=== PATIENT | female | born 2000 | race Caucasian/White ===

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

== ENCOUNTER 2019-01-05 16:42 | Emergency (ER) | payer MEDICAID ==
[2019-01-05] MEDS ORDERED: HYDROmorphone 0.5 MG/0.5 ML Syringe IVPUSH ONE ×2 (17:40→19:27)
[2019-01-05] MEDS ORDERED: Sodium Chloride 0.9% 10 ML Syringe FLUSH PRN (17:40)
[2019-01-05] MEDS ORDERED: Acetaminophen 325 MG Tab PO ONE (17:41)
[2019-01-05] MEDS ORDERED: Ondansetron 4 MG/2 ML SDV IVPUSH ONE (18:30)
[2019-01-05] MEDS ORDERED: Ketorolac 30 MG/ML SDV IVPUSH SCH (19:30)
--- NOTE | 2019-01-05 20:03 | EDM.PDOC ---
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 There have been some small clots. She did a home preg. test 2 days ago that she read out as mildly positive. she does have some radiation of pain to back. States her periods are normally very regular. 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 MARKER: Reports: Other (see below) Other 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 MARKER: tylenol 10 am Lower Pelvic Pain Score (Numeric/FACES): 8 Lower Back Pain Score (Numeric/FACES): 8 - Related Data Allergies Allergy/AdvReac Type Severity Reaction Status Date / Time morphine Allergy Anaphylactic Verified 01/05/19 20:49 Shock Home Meds: Home Meds Albuterol Sulfate [Proair Respiclick] 90 mcg IH BID PRN 10/24/18 [History] Albuterol [Ventolin HFA] 1 puff INH QID PRN #1 puff 10/24/18 [Rx] Inhaler, Assist Devices [Aerochamber MV] 1 each MC ASDIRECTED #1 spacer [Rx] Past Medical History Respiratory History: Reports: Asthma 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 Musculoskeletal History: Reports: Other (See Below) Other Musculoskeletal History: r leg laceration/surgery Social & Family History - Tobacco Use Smoking Status *Q: Current Every Day Smoker Years of Tobacco use: 2 Packs/Tins Daily: 0.3 - Caffeine Use Caffeine Use: Reports: Coffee, Soda, Tea - Recreational Drug Use Recreational Drug Use: No - Living Situation & Occupation Living situation: Reports: Single Occupation: Employed ED ROS GENERAL - Review of Systems Review Of Systems: See Below Respiratory: Denies: Shortness of Breath, Pleuritic Chest Pain Cardiovascular: Denies: Chest Pain GI/Abdominal: Reports: Abdominal Pain (lower pelvic). Denies: Nausea, Vomiting Musculoskeletal: Reports: Back Pain. Denies: Shoulder Pain Skin: Reports: No Symptoms Neurological: Denies: Dizziness ED EXAM, RENAL/ - Physical Exam Exam: See Below General Appearance: Alert, Anxious, Moderate Distress Throat/Mouth: Normal Inspection Neck: Supple Respiratory/Chest: No Respiratory Distress, Lungs Clear, Normal Breath Sounds Cardiovascular: Regular Rate, Rhythm GI/Abdominal: Tender (lower mid abd and pelvis) (Female) Exam: Normal External Exam, Vaginal Bleeding (small amt of dark blood post vag. vault), Other (mild tenderness uterus and bilat adnexa, no mass palpable). No: Enlarged Uterus Extremities: Normal Inspection, Normal Range of Motion Neurological: Alert, Oriented Course - Vital Signs Last Recorded V/S: Last Vital Signs Temp 98.1 F 01/05/19 17:02 Pulse 89 01/05/19 17:02 Resp 20 01/05/19 17:02 BP 113/82 01/05/19 17:02 Pulse Ox 100 01/05/19 17:02 - Orders/Labs/Meds Orders: Active Orders 24 hr Category Date Time Status Pelvic Exam, Set Up [RC] ASDIRECTED Care 01/05/19 19:30 Active Peripheral IV Care [RC] . DIRECTED Care 01/05/19 17:41 Active Peripheral IV Insertion Adult [OM.PC] Stat Oth 01/05/19 17:40 Ordered Labs: Laboratory Tests 01/05/19 01/05/19 01/05/19 Range/Units 17:50 17:50 17:50 WBC 7.91 (3.98-10.04) K/mm3 RBC 5.02 (3.98-5.22) M/mm3 Hgb 13.6 (11.2-15.7) gm/dl Hct 41.4 (34.1-44.9) % MCV 82.5 (79.4-94.8) fl MCH 27.1 (25.6-32.2) pg MCHC 32.9 (32.2-35.5) g/dl RDW Std Deviation 44.9 (36.4-46.3) fL Plt Count 242 (182-369) K/mm3 MPV 11.6 (9.4-12.3) fl Neut % (Auto) 54.7 (34.0-71.1) % Lymph % (Auto) 27.9 (19.3-51.7) % [place] % (Auto) 12.1 (4.7-12.5) % Eos % (Auto) 4.4 (0.7-5.8) Baso % (Auto) 0.8 (0.1-1.2) % Neut # (Auto) 4.32 (1.56-6.13) K/mm3 Lymph # (Auto) 2.21 (1.18-3.74) K/mm3 [place] # (Auto) 0.96 H (0.24-0.36) K/mm3 Eos # (Auto) 0.35 (0.04-0.36) K/mm3 Baso # (Auto) 0.06 (0.01-0.08) K/mm3 HCG, Qual Negative (NEGATIVE) HCG, Quant 1.0 mIU/mL Meds: Medications Discontinued Medications Generic Name Dose Route Start Last Admin Trade Name Freq PRN Reason Stop Dose Admin Acetaminophen 975 mg 01/05/19 17:41 Tylenol PO 01/05/19 17:42 NOW ONE Hydromorphone HCl 0.25 mg 01/05/19 17:40 01/05/19 18:00 Dilaudid IVPUSH 01/05/19 17:41 0.25 mg ONETIME ONE Administration Hydromorphone HCl 0.5 mg 01/05/19 19:27 01/05/19 19:40 Dilaudid IVPUSH 01/05/19 19:28 0.5 mg ONETIME ONE Administration Ketorolac Tromethamine 30 mg 01/05/19 19:30 01/05/19 19:38 Toradol IVPUSH 30 mg ONETIME NATALY Administration Ondansetron HCl 4 mg 01/05/19 18:30 01/05/19 18:42 Zofran IVPUSH 01/05/19 18:31 4 mg ONETIME ONE Administration Sodium Chloride 10 ml 01/05/19 17:40 01/05/19 18:02 Saline Flush FLUSH 10 ml ASDIRECTED PRN Administration Keep Vein Open - Re-Assessments/Exams Free Text/Narrative Re-Assessment/Exam: 01/06/19 15:49 HCG and quant neg. Departure - Departure Time of Disposition: 20:02 Disposition: Home, Self-Care 01 Condition: Fair Clinical Impression: Dysmenorrhea, unspecified - Discharge Information Instructions: Dysmenorrhea, [id number] Referrals: PCP,None [Primary Care Provider] - Forms: ED Department Discharge Additional Instructions: Rest, ibuprofen or Aleve up to 3 times daily with Tylenol in between doses as needed for further pain relief, drink plenty of water to maintain hydration. Follow-up clinic if not much better within 2-3 days as expected, return to ED as needed if symptoms worsening in any way. - My Orders Last 24 Hours: My Active Orders 01/05/19 17:40 Peripheral IV Insertion Adult [OM.PC] Stat 01/05/19 17:41 Peripheral IV Care [RC] . DIRECTED 01/05/19 19:30 Pelvic Exam, Set Up [RC] ASDIRECTED - Assessment/Plan Last 24 Hours: My Active Orders 01/05/19 17:40 Peripheral IV Insertion Adult [OM.PC] Stat 01/05/19 17:41 Peripheral IV Care [RC] . DIRECTED 01/05/19 19:30 Pelvic Exam, Set Up [RC] ASDIRECTED
== END 2019-01-05 20:33 | disposition home or self-care (01) ==
LOC: JD.ED 16:42
DX: N94.6 Dysmenorrhea, unspecified (principal); J45.909 Unspecified asthma, uncomplicated; F17.210 Nicotine dependence, cigarettes, uncomplicated; Z88.5 Allergy status to narcotic agent; Z79.51 Long term (current) use of inhaled steroids
CPT/HCPCS: 36415; 84702; 84703; 85025; 96374; 96375; 96376; 99284; J1170; J1885; J2405

== ENCOUNTER 2019-05-18 11:37 | Emergency (ER) | payer MEDICAID ==
[2019-05-18] MEDS ORDERED: Ondansetron 4 MG Tab.DIS PO ONE (12:16)
[2019-05-18] MEDS ORDERED: Acetaminophen 325 MG Tab PO ONE (12:31)
[2019-05-18] MEDS ORDERED: Dicyclomine 10 MG Cap PO ONE (12:32)
--- NOTE | 2019-05-18 12:39 | EDM.PDOC ---
ED HPI GENERAL MEDICAL PROBLEM - General Chief Complaint: General Stated Complaint: HEADACHE/NAUSEA/ Time Seen by Provider: 05/18/19 12:15 Source of Information: Reports: Patient History Limitations: Reports: No Limitations - History of Present Illness INITIAL COMMENTS - FREE TEXT/NARRATIVE: Patient is a 18-year-old female who presents with complaints of fever, headache , body aches, cough, sore throat, nausea, vomiting x2, abdominal cramping and watery diarrhea for the last 2 days. She states that she has been using Tylenol and ibuprofen for pain, and yesterday she took a [place] to help with a stomach cramping. She states that her younger sister was ill with headache and malaise, but did not develop GI symptoms. T-max at home was 100.8. Current temp is 98.8 she has not taken any Tylenol or ibuprofen yet today. Patient states that there is a possibility that she could be however she has not taken a test. She states that she has been able to keep down fluids and food that she has only vomited twice over the course of this illness. She states that she has had diarrhea "a couple times a day "but that has not been excessive. Generalized Pain Score (Numeric/FACES): 7 - Related Data Allergies Allergy/AdvReac Type Severity Reaction Status Date / Time morphine Allergy Anaphylactic Verified 05/18/19 11:50 Shock Home Meds: Home Meds Albuterol [Ventolin HFA] 1 puff INH QID PRN #1 puff 10/24/18 [Rx] Dicyclomine [Bentyl] 20 mg PO Q6H PRN #10 tablet 05/18/19 [Rx] Fluticasone/Salmeterol [Advair 250-50 Diskus] 1 each IH DAILY PRN 05/18/19 [ History] Ondansetron [Zofran ODT] 4 mg PO Q6H PRN #10 tab.dis 05/18/19 [Rx] Past Medical History HEENT History: Reports: None Cardiovascular History: Reports: None Respiratory History: Reports: Asthma Gastrointestinal History: Reports: None Genitourinary History: Reports: None 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 Musculoskeletal History: Reports: Other (See Below) Other Musculoskeletal History: r leg laceration/surgery Neurological History: Reports: None Psychiatric History: Reports: None Endocrine/Metabolic History: Reports: None Hematologic History: Reports: None Immunologic History: Reports: None Oncologic (Cancer) History: Reports: None Dermatologic History: Reports: None - Infectious Disease History Infectious Disease History: Reports: None Social & Family History - Tobacco Use Smoking Status *Q: Never Smoker - Caffeine Use Caffeine Use: Reports: Coffee, Soda - Recreational Drug Use Recreational Drug Use: No - Living Situation & Occupation Living situation: Reports: Single Occupation: Employed ED ROS GENERAL - Review of Systems Review Of Systems: Comprehensive ROS is negative, except as noted in HPI. ED EXAM, GENERAL - Physical Exam Exam: See Below Exam Limited By: No Limitations General Appearance: Alert, WD/WN, Mild Distress Eye Exam: Bilateral Eye: PERRL Ears: Normal External Exam, Normal Canal, Hearing Grossly Normal, Normal TMs Ear Exam: Bilateral Ear: Auricle Normal, Canal Normal, TM normal Throat/Mouth: Normal Inspection, Normal Lips, Normal Teeth, Normal Gums, Normal Oropharynx, Normal Voice, No Airway Compromise Head: Atraumatic, Normocephalic Respiratory/Chest: No Respiratory Distress, Lungs Clear, Normal Breath Sounds, No Accessory Muscle Use, Chest Non-Tender Cardiovascular: Normal Peripheral Pulses, Regular Rate, Rhythm, No Edema, No Gallop, No JVD, No Murmur, No Rub GI/Abdominal: Normal Bowel Sounds, Soft, Non-Tender, No Organomegaly, No Distention, No Abnormal Bruit, No Mass Neurological: Alert, Oriented, CN II-XII Intact, Normal Cognition, Normal Gait, Normal Reflexes, No Motor/Sensory Deficits Psychiatric: Normal Affect Skin Exam: Warm, Dry, Intact, Normal Color, No Rash Lymphatic: No Adenopathy Course - Vital Signs Last Recorded V/S: Last Vital Signs Temp 98.8 F 05/18/19 11:46 Pulse 95 05/18/19 11:46 Resp 16 05/18/19 11:46 BP 125/88 05/18/19 11:46 Pulse Ox 95 05/18/19 11:46 - Orders/Labs/Meds Meds: Medications Discontinued Medications Generic Name Dose Route Start Last Admin Trade Name Freq PRN Reason Stop Dose Admin Acetaminophen 975 mg 05/18/19 12:31 05/18/19 12:44 Tylenol PO 05/18/19 12:32 975 mg NOW ONE Administration Dicyclomine HCl 20 mg 05/18/19 12:32 05/18/19 12:44 Bentyl PO 05/18/19 12:33 20 mg ONETIME ONE Administration Ondansetron HCl 4 mg 05/18/19 12:16 05/18/19 12:20 Zofran Odt PO 05/18/19 12:17 4 mg ONETIME ONE Administration - Re-Assessments/Exams Free Text/Narrative Re-Assessment/Exam: 05/18/19 12:59 His influenza swab was negative. Discussed with her that she is likely suffering from a viral illness, possibly 2 separate viral illnesses which would account for the respiratory and the GI symptoms. She does not have any abdominal pain. There is no tenderness to palpation. She only complains of intermittent abdominal cramping. I will discharge her home with a prescription for Zofran for nausea and Bentyl for abdominal cramping. Discharge instructions as noted. 05/18/19 14:00 Patient verbalized concern on discharge regarding the medication safety during . I did go visit with the patient. I instruct ed her to complete a urine test when she gets home. If it is positive she should try alternative methods to relieve the nausea such as jagdish or meclazine; however, she may use the Zofran for severe nausea not relieved by other methods. I advised that she should use it sparingly. I also discussed that Bentyl is safe up to 40 mg daily so she may take it every 12 hours if she is . She questioned if the could be making her vomit. I did discuss that this is a possibility, however would not generally cause abdominal cramping as well as diarrhea. She had no further questions for me. Departure - Departure Time of Disposition: 13:00 Disposition: Home, Self-Care 01 Condition: Fair Clinical Impression: Viral illness - Discharge Information *PRESCRIPTION DRUG MONITORING PROGRAM REVIEWED*: No *COPY OF PRESCRIPTION DRUG MONITORING REPORT IN PATIENT CAMILA: No Prescriptions: Dicyclomine [Bentyl] 20 mg PO Q6H PRN #10 tablet PRN Reason: abdominal cramping Ondansetron [Zofran ODT] 4 mg PO Q6H PRN #10 tab.dis PRN Reason: Nausea Instructions: Viral Illness, Adult Referrals: PCP,None [Primary Care Provider] - Forms: ED Department Discharge Additional Instructions: The emergency department today for cough, fever, body aches, nausea, vomiting, and diarrhea for the last 2 days. An influenza screen was done in the ER and this did come back negative. It is likely that you are suffering from a viral illness and you should begin to gradually improve from here. A prescription has been sent to [facility] for Zofran for nausea and Bentyl for abdominal cramping. Uses medications as prescribed. You may continue to use [id number] Tylenol as needed for fever or discomfort. Since there is a chance that you could be I recommend not using ibuprofen. I also recommend that you keep a clear liquid diet for the next 24 hours and then advance as tolerated. If you should experience any new or worsening symptoms or failure to improve as expected, please do not hesitate to return to the emergency department. Sepsis Event Note - Evaluation Sepsis Screening Result: No Definite Risk - Focused Exam Vital Signs: Vital Signs Temp Pulse Resp BP Pulse Ox 05/18/19 11:46 98.8 F 95 16 125/88 95 Date Exam was Performed: 05/18/19 Time Exam was Performed: 15:40
== END 2019-05-18 13:54 | disposition home or self-care (01) ==
LOC: JD.ED 11:37
DX: B34.9 Viral infection, unspecified (principal); J45.909 Unspecified asthma, uncomplicated; Z79.51 Long term (current) use of inhaled steroids; Z88.6 Allergy status to analgesic agent
CPT/HCPCS: 87804; 99284; A9270

== ENCOUNTER 2019-06-01 22:39 | Emergency (ER) | payer MEDICAID ==
[2019-06-01] MEDS ORDERED: Acetaminophen/oxyCODONE 325-5 MG Tab PO ONE (23:12)
[2019-06-01] MEDS ORDERED: Ibuprofen 600 MG Tab PO ONE (23:12)
[2019-06-01] MEDS ORDERED: Ondansetron 4 MG Tab.DIS PO ONE (23:17)
--- NOTE | 2019-06-01 23:17 | EDM.PDOC ---
ED HPI GENERAL MEDICAL PROBLEM - General Chief Complaint: Lower Extremity Injury/Pain Stated Complaint: ROLLED ANKLE Time Seen by Provider: 06/01/19 23:00 Source of Information: Reports: Patient, Family ( multiple female friends. ) History Limitations: Reports: No Limitations - History of Present Illness INITIAL COMMENTS - FREE TEXT/NARRATIVE: 18-year-old female presents to the ED with an acute injury to her left lower extremity while walking down stairs earlier today. Injury occurred about 1500 hrs. today. He believes that she inverted her right ankle Onset: Today Onset Date: 06/01/19 Onset Time: 15:00 Duration: Hour(s): Location: Reports: Lower Extremity, Left (Complains of pain proximal fibula mid shaft tib-fib ankle particularly lateral distal fibula and pain on compression of the metatarsals lateral foot) Quality: Reports: Ache, Throbbing Severity: Moderate Improves with: Reports: Rest Worsens with: Reports: Other Context: Reports: Trauma (Slipped walking down stairs with an inversion injury to her right ankle causing her to fall.). Denies: Activity, Exercise (Unable to weight-bear left leg. 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 (see below) Left Ankle Pain Score (Numeric/FACES): 8 - Related Data Allergies Allergy/AdvReac Type Severity Reaction Status Date / Time morphine Allergy Anaphylactic Verified 06/01/19 22:46 Shock Home Meds: Home Meds Albuterol [Ventolin HFA] 1 puff INH QID PRN #1 puff 10/24/18 [Rx] Fluticasone/Salmeterol [Advair 250-50 Diskus] 1 each IH DAILY PRN 05/18/19 [ History] Past Medical History HEENT History: Reports: None Cardiovascular History: Reports: None Respiratory History: Reports: Asthma Gastrointestinal History: Reports: None Genitourinary History: Reports: None 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 Musculoskeletal History: Reports: Other (See Below) Other Musculoskeletal History: r leg laceration/surgery Neurological History: Reports: None Psychiatric History: Reports: Anxiety, Bipolar Endocrine/Metabolic History: Reports: None Hematologic History: Reports: None Immunologic History: Reports: None Oncologic (Cancer) History: Reports: None Dermatologic History: Reports: None - Infectious Disease History Infectious Disease History: Reports: None Social & Family History - Tobacco Use Smoking Status *Q: Never Smoker - Caffeine Use Caffeine Use: Reports: Coffee, Energy Drinks, Soda, Tea - Recreational Drug Use Recreational Drug Use: Yes Drug Use in Last 12 Months: Yes Recreational Drug Type: Reports: Marijuana/Hashish - Living Situation & Occupation Living situation: Reports: Single Occupation: Employed Review of Systems - Review of Systems Review Of Systems: See Below Constitutional: Reports: No Symptoms Eyes: Reports: No Symptoms Ears: Reports: No Symptoms Nose: Reports: No Symptoms Mouth/Throat: Reports: No Symptoms Respiratory: Reports: No Symptoms Cardiovascular: Reports: No Symptoms GI/Abdominal: Reports: No Symptoms Genitourinary: Reports: No Symptoms, Other (She states she just finished her period 3 days ago and was on Timentin as expected) Musculoskeletal: Reports: No Symptoms Skin: Reports: No Symptoms Neurological: Reports: No Symptoms Psychiatric: Reports: No Symptoms ED EXAM, GENERAL - Physical Exam Exam: See Below Exam Limited By: No Limitations General Appearance: Alert, WD/WN, Anxious, Moderate Distress, Other Head: Atraumatic, Normocephalic, Other Neck: Normal Inspection, Supple, Non-Tender, Full Range of Motion. No: Lymphadenopathy (L), Lymphadenopathy (R) Respiratory/Chest: No Respiratory Distress (Has a healing superficial laceration right facial cheek she states she was struck by a door a few days ago.), Lungs Clear, Normal Breath Sounds, No Accessory Muscle Use, Other (No rib pain.) Cardiovascular: Normal Peripheral Pulses, Regular Rate, Rhythm, No Edema, No Murmur, No Rub Peripheral Pulses: 3+: Posterior Tibial (L), Posterior Tibial (R), Dorsalis Pedis (L), Dorsalis Pedis (R) Extremities: Other ((Injury to the upper extremities or the right lower extremity. Examination was contained to the left lower extremity. She complains of the pain around her knee but mostly proximal fibula area. There is no traumatic effusion in the knee itself and patellofemoral articulation is normal. There is pain in the midshaft of the tib-fib on squeeze test mid shaft as well as in her left lateral ankle. There is some slight swelling of the lateral ankle ligaments but no obvious deformities to suggest a fracture. She has pain on squeeze test mid foot of the metatarsals and over the fifth metatarsal head again with no obvious deformity or ecchymoses.) Neurological: Alert, Oriented, CN II-XII Intact, Normal Cognition. No: Normal Gait (He is not able to weight-bear on the left foot.) Psychiatric: Anxious Skin Exam: Warm, Dry, Intact, Normal Color, No Rash Course - Vital Signs Last Recorded V/S: Last Vital Signs Temp 36.4 C 06/01/19 22:54 Pulse 86 06/01/19 22:54 Resp 18 06/01/19 22:54 BP 101/62 06/01/19 22:54 Pulse Ox 98 06/01/19 22:54 - Orders/Labs/Meds Orders: Active Orders 24 hr Category Date Time Status Ankle Min 3V Lt [CR] Stat Exams 06/01/19 23:15 Taken Foot Comp Min 3V Lt [CR] Stat Exams 06/01/19 23:16 Taken Tibia Fibula Lt [CR] Stat Exams 06/01/19 23:14 Taken Durable Medical Equipment for Discharge [DME for Oth 06/02/19 00:03 Ordered Discharge] [COMM] Stat Meds: Medications Discontinued Medications Generic Name Dose Route Start Last Admin Trade Name Freq PRN Reason Stop Dose Admin Ibuprofen 600 mg 06/01/19 23:12 06/01/19 23:18 Motrin PO 06/01/19 23:13 600 mg ONETIME ONE Administration Ondansetron HCl 4 mg 06/01/19 23:17 06/01/19 23:20 Zofran Odt PO 06/01/19 23:18 4 mg ONETIME ONE Administration Oxycodone/Acetaminophen 2 tab 06/01/19 23:12 06/01/19 23:18 Percocet 325-5 Mg PO 06/01/19 23:13 2 tab ONETIME ONE Administration - Radiology Interpretation Free Text/Narrative:: 18-year-old female presents to the ED for evaluation of left lower extremity injury that occurred about 1500 hrs. today. She is walking down some stairs and inverted her left ankle which caused her to fall with direct blow to the knee. Is complaining of pain that is gradually worsened in the left knee left proximal fibula mid shaft tib-fib left lateral ankle and left lateral foot. He has deformities and no traumatic effusion of the knee. I do not suspect a fracture clinically. As of the tib-fib ankle and foot will be obtained. When 2 Percocet tabs 5/3/25 milligram by mouth with Zofran 4 mg sublingually. Motrin 600 mg by mouth as well for pain relief. - Re-Assessments/Exams Free Text/Narrative Re-Assessment/Exam: 06/02/19 00:06 x-rays of the left tib-fib ankle and foot are negative for any fractures. Patient will have her left ankle wrapped with an Man wrap and she will be nonweightbearing crutch walking for the next 4-5 days. No will be provided to keep her out of the work place for the next 7 days due to sprained left ankle. 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 She 'll continue Motrin 6 mg every 6 hours needed for pain relief. Levator and ice the sore areas for the next 48 hours. Departure - Departure Time of Disposition: 00:06 Disposition: Home, Self-Care 01 Condition: Fair Clinical Impression: Contusion of left lower extremity Qualifiers: Encounter type: initial encounter Qualified Code(s): S80.12XA - Contusion of left lower leg, initial encounter Sprain of left ankle Qualifiers: Encounter type: initial encounter Involved ligament of ankle: calcaneofibular ligament Qualified Code(s): S93.412A - Sprain of calcaneofibular ligament of left ankle, initial encounter - Discharge Information *PRESCRIPTION DRUG MONITORING PROGRAM REVIEWED*: Not Applicable *COPY OF PRESCRIPTION DRUG MONITORING REPORT IN PATIENT CAMILA: Not Applicable Instructions: Ankle Sprain, [id number], Foot Contusion, [id number], Contusion Referrals: PCP,None [Primary Care Provider] - Forms: ED Department Discharge, ED Return to Work/School Form Additional Instructions: Evaluation emergency room tonight in regards to injuries to the left lower extremity that occurred from falling down 4 stairs at about 1500 hrs. yesterday. Pain left lateral knee mid shaft of the leg and left lateral ankle and foot identified on examination. No obvious deformities or significant swelling identified. Of the tib-fib the knee ankle and foot were obtained and no fractures were identified. Injuries are therefore bone contusions and sprain of the left lateral ankle ligaments. Treatment is Man wrap on the left ankle for the next 8-10 days. Suggest on during the day and off at night although you may leave it on all night tonight. Ice pack to sore areas one half hour out of every 4 hours for the next 2 days. Motrin 600 mg every 6 hours needed for pain relief. Suggest nonweightbearing crutch walking for the next 4-5 days until he can walk comfortably with very minimal discomfort in your left ankle. Suggest a well laced up boot for the next 3-4 weeks as it is still very icy outside making her more prone to reinjuring the ankle. Off work for the next week due to the nature of your job. Follow up with personal care physician if not completely back to normal in 14 days time. Sepsis Event Note - Evaluation Sepsis Screening Result: No Definite Risk - Focused Exam Vital Signs: Vital Signs Temp Pulse Resp BP Pulse Ox 06/01/19 22:54 36.4 C 86 18 101/62 98 06/01/19 22:48 18 Date Exam was Performed: 06/02/19 Time Exam was Performed: 00:06 - My Orders Last 24 Hours: My Active Orders 06/01/19 23:14 Tibia Fibula Lt [CR] Stat 06/01/19 23:15 Ankle Min 3V Lt [CR] Stat 06/01/19 23:16 Foot Comp Min 3V Lt [CR] Stat 06/02/19 00:03 Durable Medical Equipment for Discharge [DME for Discharge] [COMM] Stat - Assessment/Plan Last 24 Hours: My Active Orders 06/01/19 23:14 Tibia Fibula Lt [CR] Stat 06/01/19 23:15 Ankle Min 3V Lt [CR] Stat 06/01/19 23:16 Foot Comp Min 3V Lt [CR] Stat 06/02/19 00:03 Durable Medical Equipment for Discharge [DME for Discharge] [COMM] Stat
--- NOTE | 2019-06-02 08:00 | CR ---
Left tibia and fibula: AP and lateral views of the left tibia and fibula were obtained. No fracture or other bony abnormality is appreciated. Impression: 1. No abnormality is appreciated on two-view left tibia and fibula exam. Diagnostic code #1 This report was dictated in [place] Standard Time
--- NOTE | 2019-06-02 08:00 | CR ---
Left foot: Three views centered to the left foot were obtained. Comparison: No prior left foot exam. Joint spaces are preserved. No fracture, dislocation or other bony abnormality is appreciated. Impression: 1. No abnormality is identified on left foot exam. Diagnostic code #1 This report was dictated in [place] Standard Time
--- NOTE | 2019-06-02 08:00 | CR ---
Left ankle: Four views of the left ankle were obtained. Comparison: No previous ankle study. Ankle mortise is symmetric. No fracture, dislocation or other bony abnormality is appreciated. Impression: 1. No abnormality is identified on left ankle exam. Diagnostic code #1 This report was dictated in [place] Standard Time
== END 2019-06-02 00:18 | disposition home or self-care (01) ==
LOC: JD.ED 22:39
DX: S93.412A Sprain of calcaneofibular ligament of left ankle, initial encounter (principal); S80.02XA Contusion of left knee, initial encounter; S80.12XA Contusion of left lower leg, initial encounter; J45.909 Unspecified asthma, uncomplicated; Z79.899 Other long term (current) drug therapy; Z88.5 Allergy status to narcotic agent; W10.9XXA Fall (on) (from) unspecified stairs and steps, initial encounter; X50.1XXA Overexertion from prolonged static or awkward postures, initial encounter
CPT/HCPCS: 73590; 73610; 73630; 99283; A9270

== ENCOUNTER 2019-06-13 20:59 | Emergency (ER) | payer OTHER ==
[2019-06-13] MEDS ORDERED: Ondansetron 4 MG Tab.DIS PO ONE (22:45)
[2019-06-13] MEDS ORDERED: Ibuprofen 600 MG Tab PO ONE (22:45)
[2019-06-13] MEDS ORDERED: Acetaminophen/oxyCODONE 325-5 MG Tab PO ONE (22:46)
--- NOTE | 2019-06-13 22:49 | EDM.PDOC ---
ED HPI GENERAL MEDICAL PROBLEM - General Chief Complaint: Lower Extremity Injury/Pain Stated Complaint: ANKLE INJURY Time Seen by Provider: 06/13/19 22:38 Source of Information: Reports: Patient, Family History Limitations: Reports: No Limitations - History of Present Illness INITIAL COMMENTS - FREE TEXT/NARRATIVE: 18-year-old female presents to the ED with a recurrent inversion injury to her left ankle. States she slipped on water in the workplace about 2030 hrs. tonight but was able to catch herself before she fell to the ground. She has a recent inversion sprain to this ankle and is just recovering from injury 2 weeks ago. She still has ecchymoses along the lateral aspect of her left foot. To be very histrionic with pain from the knee to her great toe. Ice I touched caused severe pain. No obvious deformities and very minimal swelling to the lateral ankle only on exam. Nurses report that she walked into the ED on her leg. Onset: Today Onset Date: 06/13/19 Onset Time: 20:30 Duration: Hour(s): Location: Reports: Lower Extremity, Left (Ankle pain rating up to the knee and to her great toe) Quality: Reports: Ache, Throbbing Severity: Severe (9 out of 10) Improves with: Reports: Rest Worsens with: Reports: Movement (Of note she walked into the ED on her foot.) Context: Reports: Trauma (Inversion injury when she slipped on water in the workplace.). 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.) Left Ankle Pain Score (Numeric/FACES): 8 - Related Data Allergies Allergy/AdvReac Type Severity Reaction Status Date / Time morphine Allergy Anaphylactic Verified 06/13/19 21:34 Shock Home Meds: Home Meds Albuterol [Ventolin HFA] 1 puff INH QID PRN #1 puff 10/24/18 [Rx] Fluticasone/Salmeterol [Advair 250-50 Diskus] 1 each IH DAILY PRN 05/18/19 [ History] Past Medical History HEENT History: Reports: None Cardiovascular History: Reports: None Respiratory History: Reports: Asthma (On 2 inhalers.) Gastrointestinal History: Reports: None Genitourinary History: Reports: None 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 Musculoskeletal History: Reports: Other (See Below) Other Musculoskeletal History: r leg laceration/surgery Neurological History: Reports: None Psychiatric History: Reports: Anxiety, Bipolar Endocrine/Metabolic History: Reports: None Hematologic History: Reports: None Immunologic History: Reports: None Oncologic (Cancer) History: Reports: None Dermatologic History: Reports: None - Infectious Disease History Infectious Disease History: Reports: MRSA Social & Family History - Tobacco Use Smoking Status *Q: Never Smoker - Caffeine Use Caffeine Use: Reports: Coffee, Soda, Tea - Recreational Drug Use Recreational Drug Use: Yes Recreational Drug Type: Reports: Marijuana/Hashish - Living Situation & Occupation Living situation: Reports: Single Occupation: Employed Review of Systems - Review of Systems Review Of Systems: See Below Constitutional: Reports: No Symptoms Eyes: Reports: No Symptoms Ears: Reports: No Symptoms Nose: Reports: No Symptoms Mouth/Throat: Reports: No Symptoms Respiratory: Reports: No Symptoms Cardiovascular: Reports: No Symptoms GI/Abdominal: Reports: No Symptoms Genitourinary: Reports: No Symptoms, Vaginal Bleeding Skin: Reports: No Symptoms Neurological: Reports: No Symptoms Psychiatric: Reports: Other (Very histrionic behavior) ED EXAM, GENERAL - Physical Exam Exam: See Below Exam Limited By: No Limitations General Appearance: Alert, WD/WN, Severe Distress, Other (Very dramatic presentation and histrionic.) Eye Exam: Bilateral Eye: Normal Inspection (Does not appear to be under the influence of drugs or alcohol.) Peripheral Pulses: 3+: Posterior Tibial (L), Posterior Tibial (R), Dorsalis Pedis (L), Dorsalis Pedis (R) Extremities: Other (Minasian was limited to her left lower extremity although examination was for the most part futile. She had pain on compression of her proximal fibula pain on midshaft of the tib-fib pain on compression of her tarsals. Pain on palpation of the deltoid ligament and I did not palpate the lateral ligaments as it was very minimal swelling. She was reluctant to dorsiflex or plantarflex her foot or mando or invert the foot due to pain. Again very dramatic presentation) Neurological: Alert, Oriented, CN II-XII Intact, Normal Cognition Psychiatric: Anxious Skin Exam: Warm, Dry, Intact, Normal Color, No Rash Course - Vital Signs Last Recorded V/S: Last Vital Signs Temp 36.5 C 06/13/19 21:32 Pulse 74 06/13/19 21:32 Resp 16 06/13/19 21:32 BP 141/105 H 06/13/19 21:32 Pulse Ox 100 06/13/19 21:32 - Orders/Labs/Meds Orders: Active Orders 24 hr Category Date Time Status Ankle Min 3V Lt [CR] Stat Exams 06/13/19 22:08 Taken Meds: Medications Discontinued Medications Generic Name Dose Route Start Last Admin Trade Name Baljit PRN Reason Stop Dose Admin Ibuprofen 600 mg 06/13/19 22:45 06/13/19 23:23 Motrin PO 06/13/19 22:46 Not Given ONETIME ONE Ondansetron HCl 4 mg 06/13/19 22:45 06/13/19 23:23 Zofran Odt PO 06/13/19 22:46 Not Given ONETIME ONE Oxycodone/Acetaminophen 1 tab 06/13/19 22:46 06/13/19 23:23 Percocet 325-5 Mg PO 06/13/19 22:47 Not Given ONETIME ONE - Radiology Interpretation Free Text/Narrative:: 18-year-old female presents to the ED stating that she suffered an inversion injury to her left ankle when sleep slipped in some water in the workplace about 2030 hrs. tonight. She caught herself before she fell to the floor. She has a previous inversion injury to the ankle about 2 weeks ago and still has ecchymoses along the lateral aspect of her left foot and ankle. She was extremely reluctant to have any examination of her entire leg is anyplace that I touched because severe pain particular the proximal fibula midshaft of the tib -fib the ankle bones medial ligament and the meta tarsal bones. Therefore examination was less than satisfactory. I have ordered Motrin 600 mg and Zofran 4 mg and Percocet 5/325 mg tablet for her terrible pain. Will be to have x-rays of the tib-fib and ankle performed. - Re-Assessments/Exams Free Text/Narrative Re-Assessment/Exam: 06/13/19 23;15:'s nurse had ordered 3 view x-ray of her left ankle which I did look at and identified no fractures. I could see most of the posterior and midfoot with no fractures particular no evidence of a Dan fracture. Was waiting for her to have the completion of her tib-fib x-rays but apparently she refused the x-rays and she refused the medication offered to help her pain. Therefore discharged from the ED. Apparently she has crutches at home from her last injury. I am not sure if she accepted the Man wrap that I's had suggested to the left foot and ankle for support and to allow ice pack to the lateral aspect of the foot. Treatment is R.I.C.E. Departure - Departure Time of Disposition: 23:46 Disposition: Home, Self-Care 01 Condition: Fair Clinical Impression: Sprain and strain of left ankle - Discharge Information *PRESCRIPTION DRUG MONITORING PROGRAM REVIEWED*: Not Applicable *COPY OF PRESCRIPTION DRUG MONITORING REPORT IN PATIENT CAMILA: Not Applicable Instructions: Ankle Sprain, [id number] Referrals: Ruma Frye MD [Primary Care Provider] - Forms: ED Department Discharge Additional Instructions: Valuation in the emergency room tonight in regards to acute inversion injury to your left ankle. Recurrent injury to this ankle over the last several weeks. Examination was limited due to not allowing me to properly examine the left leg. You had pain from your knee to your great toe on examination. Strays of the ankle and most of the foot and the lower half of your tibia and fibula or lower leg were obtained prior to my evaluation. No fractures were identified in the ankle joint foot joint or the distal tib-fib. You refused x-rays of the upper tib-fib when they were offered to you. You also refused pain management while in the ED. Suggest Man wrap on the ankle usually on during the day and off at night. Man wrap for 10 days. Suggest nonweightbearing and use of crutches until able to weight-bear without pain which will usually be about 4 to 5 days. Elevate the foot as much as possible. Ice pack to the area 1/2- hour out of every 4 hours for the next 2 days. [place] 600 mg every 6 hours to reduce pain and inflammation. Up with personal care physician if not completely back to normal in 2 weeks time Sepsis Event Note - Evaluation Sepsis Screening Result: No Definite Risk - Focused Exam Vital Signs: Vital Signs Temp Pulse Resp BP Pulse Ox 06/13/19 21:32 36.5 C 74 16 141/105 H 100 Date Exam was Performed: 06/14/19 Time Exam was Performed: 02:48 - My Orders Last 24 Hours: My Active Orders 06/13/19 22:08 Ankle Min 3V Lt [CR] Stat - Assessment/Plan Last 24 Hours: My Active Orders 06/13/19 22:08 Ankle Min 3V Lt [CR] Stat
--- NOTE | 2019-06-14 07:17 | CR ---
Left ankle: Four views of the left ankle were obtained. Comparison: Prior left ankle study of 06/01/19. Ankle mortise is symmetric. No fracture, dislocation or other bony abnormality is appreciated. Impression: 1. No abnormality is identified on left ankle exam. Diagnostic code #1 This report was dictated in Mountain Standard Time
== END 2019-06-13 23:54 | disposition home or self-care (01) ==
LOC: JD.ED 20:59
DX: S93.402A Sprain of unspecified ligament of left ankle, initial encounter (principal); S96.912A Strain of unspecified muscle and tendon at ankle and foot level, left foot, initial encounter; J45.909 Unspecified asthma, uncomplicated; Z88.5 Allergy status to narcotic agent; W01.0XXA Fall on same level from slipping, tripping and stumbling without subsequent striking against object, initial encounter; Y99.0 Civilian activity done for income or pay
CPT/HCPCS: 73610-26-LT; 73610-LT; 99283; 99283-25

== ENCOUNTER 2020-02-05 09:56 | Emergency (ER) | payer OTHER ==
[2020-02-05] MEDS ORDERED: Albuterol 0.083% 2.5 MG/3 ML Neb Soln NEB ONE (11:50)
--- NOTE | 2020-02-05 12:23 | EDM.PDOC ---
ED HPI GENERAL MEDICAL PROBLEM - General Chief Complaint: Asthma Stated Complaint: ASTHMA Time Seen by Provider: 02/05/20 11:14 Source of Information: Reports: Patient, RN Notes Reviewed History Limitations: Reports: No Limitations - History of Present Illness INITIAL COMMENTS - FREE TEXT/NARRATIVE: Patient is a 27-year-old female who presents to the ED for the evaluation of her asthma. Patient has a longstanding history of asthma and, states that she was the last of her albuterol inhaler yesterday. She states that last night in the middle the night she had an asthma attack, and states is very difficult to breathe. She called herself down and was able to go back to sleep. She notes that she was tried to slow her breathing, but stated this morning she felt like she was working too hard to breathe so she comes to the ER for management. She also states she ran out of her steroid inhaler a while back, and did not have a chance to fill this with a primary care provider. Patient denies any other sick-like symptoms, fever/chills, cough/shortness of breath, nausea/vomiting/diarrhea. She states she does not have a primary care provider at this time. 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 Musculoskeletal History: Reports: Other (See Below) Other Musculoskeletal History: r leg laceration/surgery Psychiatric History: Reports: Anxiety, Bipolar - Infectious Disease History Infectious Disease History: Reports: MRSA - Past Surgical History Musculoskeletal Surgical History: Reports: Other (See Below) (R leg laceration/surgery) Social & Family History - Tobacco Use Tobacco Use Status *Q: Never Tobacco User Second Hand Smoke Exposure: No - Caffeine Use Caffeine Use: Reports: None - Recreational Drug Use Recreational Drug Use: Yes Recreational Drug Type: Reports: Marijuana/Hashish Recreational Drug Use Frequency: Socially - Living Situation & Occupation Living situation: Reports: Single Occupation: Employed ED ROS GENERAL - Review of Systems Review Of Systems: Comprehensive ROS is negative, except as noted in HPI. ED EXAM, GENERAL - Physical Exam Exam: See Below Exam Limited By: No Limitations General Appearance: Alert, WD/WN, No Apparent Distress Throat/Mouth: Normal Inspection, Normal Lips, Normal Teeth, Normal Gums, Normal Oropharynx, Normal Voice, No Airway Compromise Head: Atraumatic, Normocephalic Neck: Normal Inspection Respiratory/Chest: No Respiratory Distress, No Accessory Muscle Use, Chest Non- Tender, Decreased Breath Sounds (somehwat decreased bilaterally), Wheezing (diffuse bilaterally, pt is still able to move quite a bit of air). No: Rales, Rhonchi, Prolonged Expiration Cardiovascular: Normal Peripheral Pulses, Regular Rate, Rhythm, No Murmur Peripheral Pulses: 2+: Radial (L), Radial (R) Extremities: Normal Inspection, Normal Capillary Refill Neurological: Alert, Oriented, Normal Cognition, No Motor/Sensory Deficits Psychiatric: Normal Affect, Normal Mood Skin Exam: Warm, Dry, Intact, Normal Color, No Rash Course - Vital Signs Last Recorded V/S: Last Vital Signs Temp 97.8 F 02/05/20 10:06 Pulse Resp 18 02/05/20 10:06 BP 126/91 H 02/05/20 10:06 Pulse Ox 96 02/05/20 11:57 - Orders/Labs/Meds Orders: Active Orders 24 hr Category Date Time Status RT Aerosol Therapy [RC] ASDIRECTED Care 02/05/20 11:50 Ordered Meds: Medications Discontinued Medications Generic Name Dose Route Start Last Admin Trade Name Freq PRN Reason Stop Dose Admin Albuterol 2.5 mg 02/05/20 11:50 02/05/20 11:56 Proventil Neb Soln NEB 02/05/20 11:51 2.5 mg ONETIME ONE Administration - Re-Assessments/Exams Free Text/Narrative Re-Assessment/Exam: 02/05/20 11:45 The patient presents to the ED for evaluation of her asthma. Did order an albuterol inhaler to be given in the ER, and will refill her albuterol inhaler along with her Advair inhaler. Patient be discharged home after she gets her albuterol nebulizer in the ER. Departure - Departure Time of Disposition: 12:23 Disposition: Home, Self-Care 01 Condition: Good Clinical Impression: Asthma attack Qualifiers: Asthma severity: mild Asthma persistence: unspecified Qualified Code(s): J45.901 - Unspecified asthma with (acute) exacerbation - Discharge Information *PRESCRIPTION DRUG MONITORING PROGRAM REVIEWED*: No *COPY OF PRESCRIPTION DRUG MONITORING REPORT IN PATIENT CAMILA: No Prescriptions: Fluticasone Propion/Salmeterol [Advair 250-50 Diskus] 1 inh PO BID #1 device Albuterol [Ventolin HFA] 1 puff INH QID PRN #1 puff PRN Reason: Shortness Of Breath Instructions: Asthma Attack Prevention, Adult Referrals: PCP,None [Primary Care Provider] - Additional Instructions: You were evaluated in the ED for your Asthma. You were given an albuterol nebulizer in the ER and this did seem to help your symptoms. You were given a prescription for an albuterol inhaler, along with a refill of your Advair inhaler, please take as directed. I recommend that you use your inhaler at least 3 or to 4 times a day for the next day or 2, to help get control of your symptoms. Recommend you follow-up in our clinic at [phone], you may call tomorrow morning to set up with a family any 1 of our practice provider of choice, family practice providers would be able to provide services, for management of your asthma and refill of your medications. Please return to the ER at any time if symptoms change or worsen. Sepsis Event Note (ED) - Evaluation Sepsis Screening Result: No Definite Risk - Focused Exam Vital Signs: Vital Signs Temp Resp BP Pulse Ox Pulse Ox 02/05/20 11:57 96 02/05/20 10:06 97.8 F 18 126/91 H 98 - My Orders Last 24 Hours: My Active Orders 02/05/20 11:50 RT Aerosol Therapy [RC] ASDIRECTED - Assessment/Plan Last 24 Hours: My Active Orders 02/05/20 11:50 RT Aerosol Therapy [RC] ASDIRECTED
== END 2020-02-05 12:45 | disposition home or self-care (01) ==
LOC: JD.ED 09:56
DX: J45.909 Unspecified asthma, uncomplicated (principal); Z88.5 Allergy status to narcotic agent; Z79.899 Other long term (current) drug therapy
CPT/HCPCS: 94640; 99283; 99284-25

== ENCOUNTER 2020-04-08 01:17 | Emergency (ER) | payer OTHER ==
[2020-04-08] MEDS ORDERED: Albuterol/Ipratropium 3.0-0.5 MG/3 ML Neb Soln NEB ONE (01:44)
--- NOTE | 2020-04-08 01:49 | EDM.PDOC ---
ED HPI GENERAL MEDICAL PROBLEM - General Chief Complaint: Respiratory Problem Stated Complaint: sob Time Seen by Provider: 04/08/20 01:38 Source of Information: Reports: Patient History Limitations: Reports: No Limitations - History of Present Illness INITIAL COMMENTS - FREE TEXT/NARRATIVE: This is a 19-year-old female. Tonight she was around in hot oven making some pizza. When she sat down to eat the pizza as she realized she was kind of short of breath and she went to get her inhaler but the inhaler had run out. Due to her shortness of breath she comes to the ER for evaluation. She says that heat oftentimes will cause an exacerbation of her asthma. She has had no recent illnesses colds coughs fever chills or any Covid-like symptoms. She just learned that she is she is a 1 para 0 aborta 0 her last menstrual period was March [address] her approximately 4-1/2 weeks . She has had no nausea vomiting or diarrhea. 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 Musculoskeletal History: Reports: Other (See Below) Other Musculoskeletal History: r leg laceration/surgery Psychiatric History: Reports: Anxiety, Bipolar Immunologic History: Reports: None - Infectious Disease History Infectious Disease History: Reports: MRSA - Past Surgical History Musculoskeletal Surgical History: Reports: Other (See Below) (R leg laceration/surgery) Social & Family History - Caffeine Use Caffeine Use: Reports: None - Living Situation & Occupation Living situation: Reports: Single Occupation: Employed ED ROS GENERAL - Review of Systems Review Of Systems: See Below Constitutional: Denies: Fever, Chills HEENT: Reports: No Symptoms Respiratory: Reports: Shortness of Breath, Wheezing. Denies: Cough Cardiovascular: Denies: Chest Pain Endocrine: Reports: No Symptoms GI/Abdominal: Denies: Abdominal Pain, Diarrhea, Nausea, Vomiting : Reports: No Symptoms Musculoskeletal: Reports: No Symptoms Skin: Reports: No Symptoms Neurological: Reports: No Symptoms Psychiatric: Reports: No Symptoms Hematologic/Lymphatic: Reports: No Symptoms ED EXAM, GENERAL - Physical Exam Exam: See Below Exam Limited By: No Limitations General Appearance: Alert, WD/WN, No Apparent Distress Eye Exam: Bilateral Eye: Normal Inspection Ears: Normal External Exam, Normal Canal, Normal TMs Nose: Normal Inspection. No: Nasal Drainage, Clear Rhinorrhea Throat/Mouth: Normal Inspection, Normal Lips, Normal Oropharynx, Normal Voice, No Airway Compromise Head: Normocephalic Neck: Supple Respiratory/Chest: Other (She has a very slight expiratory wheeze noted in all mullen but no significant prolonged expiratory phase, there is no rales or rhonchi there is no nasal flaring or intercostal retractions.) Cardiovascular: Regular Rate, Rhythm, No Murmur GI/Abdominal: Soft Back Exam: Full Range of Motion Extremities: Normal Inspection, Normal Range of Motion Neurological: Alert, Oriented Psychiatric: Normal Affect, Normal Mood Skin Exam: Warm, Dry Course - Vital Signs Last Recorded V/S: Last Vital Signs Temp 97.5 F 04/08/20 01:25 Pulse 95 04/08/20 01:25 Resp 20 04/08/20 01:25 BP 121/66 04/08/20 01:25 Pulse Ox 99 04/08/20 01:50 - Orders/Labs/Meds Orders: Active Orders 24 hr Category Date Time Status RT Aerosol Therapy [RC] ASDIRECTED Care 04/08/20 01:44 Active Meds: Medications Discontinued Medications Generic Name Dose Route Start Last Admin Trade Name Freq PRN Reason Stop Dose Admin Albuterol/Ipratropium 3 ml 04/08/20 01:44 04/08/20 01:49 Duoneb 3.0-0.5 Mg/3 Ml NEB 04/08/20 01:45 3 ml ONETIME ONE Administration - Re-Assessments/Exams Free Text/Narrative Re-Assessment/Exam: 04/08/20 02:04 After the DuoNeb treatment she feels like she is breathing a lot better now and she says once you counter break that cycle she is able to do okay and she wants to go home. I did listen to her lungs again there is no expiratory wheezing noted at this time and she is breathing easily. Departure - Departure Time of Disposition: 02:05 Disposition: Home, Self-Care 01 Condition: Good Clinical Impression: Exacerbation of asthma Qualifiers: Asthma severity: mild Asthma persistence: unspecified Qualified Code(s): J45.901 - Unspecified asthma with (acute) exacerbation - Discharge Information *PRESCRIPTION DRUG MONITORING PROGRAM REVIEWED*: Not Applicable *COPY OF PRESCRIPTION DRUG MONITORING REPORT IN PATIENT CAMILA: Not Applicable Prescriptions: Albuterol Sulfate [Albuterol Sulfate Hfa] 2 puff IH Q6H PRN #1 hfa.aer.ad PRN Reason: Wheezing Instructions: Preventing Asthma Attacks From Outdoor Allergens, Teen Forms: ED Department Discharge Additional Instructions: Get the albuterol inhaler filled tomorrow and use it as needed for your wheezing, follow-up with your OB doctor as scheduled and see if they can find a primary care provider to take care of your asthma, if there is worsening of your symptoms return to the ER Sepsis Event Note (ED) - Evaluation Sepsis Screening Result: No Definite Risk - Focused Exam Vital Signs: Vital Signs Temp Pulse Resp BP Pulse Ox Pulse Ox 04/08/20 01:50 99 04/08/20 01:25 97.5 F 95 20 121/66 96 - My Orders Last 24 Hours: My Active Orders 04/08/20 01:44 RT Aerosol Therapy [RC] ASDIRECTED - Assessment/Plan Last 24 Hours: My Active Orders 04/08/20 01:44 RT Aerosol Therapy [RC] ASDIRECTED
== END 2020-04-08 02:18 | disposition home or self-care (01) ==
LOC: JD.ED 01:17
DX: J45.901 Unspecified asthma with (acute) exacerbation (principal); Z88.5 Allergy status to narcotic agent; Z79.899 Other long term (current) drug therapy
CPT/HCPCS: 94640; 99284-25; J7620-GY

== ENCOUNTER 2020-05-19 10:56 | Emergency (ER) | payer OTHER ==
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
--- NOTE | 2020-05-19 13:54 | US ---
First trimester obstetrical ultrasound: Multiple real-time images were obtained transabdominally. Comparison: No previous study. Dates: Working GERI: 10/16/20, gestational age 9 weeks 6 days Current ultrasound: GERI 12/12/20, gestational age 10 weeks 3 days Single intrauterine gestation is seen. Small embryo is identified. No subchorionic hemorrhage is seen. Maternal ovaries are seen and appear within normal limits. Measurements: Gestational sac: 3.48 cm - 10 weeks 3 days Heart rate: 179 bpm Impression: 1. Single intrauterine gestation. Dates as noted above. 2. No complicating process is appreciated. Diagnostic code #1
== END 2020-05-19 14:35 | disposition home or self-care (01) ==
LOC: JD.ED 10:56 → SUPCPDRO 10:56 → JD.ED 14:35
DX: O23.11 Infections of bladder in pregnancy, first trimester (principal); O99.511 Diseases of the respiratory system complicating pregnancy, first trimester; J45.909 Unspecified asthma, uncomplicated; Z72.0 Tobacco use; Z88.5 Allergy status to narcotic agent; Z3A.10 10 weeks gestation of pregnancy
CPT/HCPCS: 76801; 76801-26; 81001; 87086; 99283; 99284-25

== ENCOUNTER 2020-12-10 01:31 | Inpatient (IN) | payer OTHER ==
[2020-12-10] MEDS ORDERED: Calcium Carbonate 500 MG Tab.Chew PO PRN (03:20)
[2020-12-10] MEDS ORDERED: Ondansetron 4 MG/2 ML SDV IVPUSH PRN (03:20)
[2020-12-10] MEDS ORDERED: Acetaminophen 325 MG Tab PO PRN (03:20)
[2020-12-10] MEDS ORDERED: Sodium Chloride 0.9% 10 ML Syringe FLUSH PRN (03:20)
[2020-12-10] MEDS ORDERED: Oxytocin/Lactated Ringers 10 UNIT/1,000 ML BAG IV SCH ×2 (03:30→04:30)
[2020-12-10] MEDS: Lactated Ringers 1,000 ML IV SCH ×4 (04:22→21:42)
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
[2020-12-10] MEDS ORDERED: fentaNYL 100 MCG/2 ML SDV EPIDUR PRN (10:12)
[2020-12-10] MEDS ORDERED: diphenhydrAMINE 50 MG/ML SDV IVPUSH PRN (10:12)
[2020-12-10] MEDS ORDERED: ePHEDrine 50 MG/ML SDV IVPUSH PRN (10:12)
--- NOTE | 2020-12-10 10:45 | PCM.PREANE ---
Preanesthetic Assessment - Procedure Proposed Procedure: helen - Anesthesia/Transfusion/Family Hx Anesthesia History: Prior Anesthesia Without Reaction Family History of Anesthesia Reaction: No Transfusion History: No Prior Transfusion(s) - Review of Systems General: No Symptoms Pulmonary: No Symptoms Cardiovascular: No Symptoms Gastrointestinal: No Symptoms Neurological: No Symptoms Other: Reports: None, Depression (history) - Physical Assessment Vital Signs: Last Vital Signs Temp 97.9 F 12/10/20 03:29 Pulse 100 12/10/20 03:29 Resp 16 12/10/20 03:29 BP 121/79 12/10/20 03:29 Pulse Ox 98 12/10/20 03:29 Height: 5 ft 6 in Weight: 86.954 kg ASA Class: 2 Mental Status: Alert & Oriented x3 Airway Class: Mallampati = 1 Dentition: Reports: Normal Dentition Thyro-Mental Finger Breadths: 3 Mouth Opening Finger Breadths: 3 ROM/Head Extension: Full Lungs: Clear to Auscultation, Normal Respiratory Effort Cardiovascular: Regular Rate, Regular Rhythm - Lab Values: Laboratory Last Values WBC 11.69 K/mm3 (3.98-10.04) H 12/10/20 03:36 RBC 4.13 M/mm3 (3.98-5.22) 12/10/20 03:36 Hgb 8.6 gm/dl (11.2-15.7) L D 12/10/20 03:36 Hct 28.4 % (34.1-44.9) L 12/10/20 03:36 MCV 68.8 fl (79.4-94.8) L D 12/10/20 03:36 MCH 20.8 pg (25.6-32.2) L 12/10/20 03:36 MCHC 30.3 g/dl (32.2-35.5) L 12/10/20 03:36 RDW Std Deviation 40.3 fL (36.4-46.3) 12/10/20 03:36 Plt Count 206 K/mm3 (182-369) 12/10/20 03:36 MPV 11.3 fl (9.4-12.3) 12/10/20 03:36 Neut % (Auto) 68.0 % (34.0-71.1) 12/10/20 03:36 Lymph % (Auto) 21.3 % (19.3-51.7) 12/10/20 03:36 [place] % (Auto) 8.3 % (4.7-12.5) 12/10/20 03:36 Eos % (Auto) 1.7 (0.7-5.8) 12/10/20 03:36 Baso % (Auto) 0.3 % (0.1-1.2) 12/10/20 03:36 Neut # (Auto) 7.94 K/mm3 (1.56-6.13) H 12/10/20 03:36 Lymph # (Auto) 2.49 K/mm3 (1.18-3.74) 12/10/20 03:36 [place] # (Auto) 0.97 K/mm3 (0.24-0.36) H 12/10/20 03:36 Eos # (Auto) 0.20 K/mm3 (0.04-0.36) 12/10/20 03:36 Baso # (Auto) 0.04 K/mm3 (0.01-0.08) 12/10/20 03:36 Manual Slide Review Abnormal smear 12/10/20 03:36 SARS-CoV-2 RNA (KATHARINE) Negative (NEGATIVE) 12/10/20 03:30 Blood Type O POSITIVE 12/10/20 03:36 Gel Antibody Screen Negative 12/10/20 03:36 - Allergies Allergies/Adverse Reactions: Allergies Allergy/AdvReac Type Severity Reaction Status Date / Time morphine Allergy Severe Anaphylactic Verified 12/10/20 03:20 Shock - Blood Blood Available: No - Acknowledgements Anesthesia Type Planned: Epidural Pt an Appropriate Candidate for the Planned Anesthesia: Yes Alternatives and Risks of Anesthesia Discussed w Pt/Guardian: Yes Pt/Guardian Understands and Agrees with Anesthesia Plan: Yes PreAnesthesia Questionnaire Cardiovascular History: Reports: None Respiratory History: Reports: Asthma Gastrointestinal History: Reports: GERD (with preg) 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 : 2 Para: 0 Musculoskeletal History: Reports: Other (See Below) Other Musculoskeletal History: r leg laceration/surgery Psychiatric History: Reports: Anxiety, Depression Hematologic History: Reports: Anemia Immunologic History: Reports: None Oncologic (Cancer) History: Reports: None - Infectious Disease History Infectious Disease History: Reports: MRSA - Past Surgical History Musculoskeletal Surgical History: Reports: Other (See Below) (leg laceration then drain tube-) - SUBSTANCE USE Tobacco Use Status *Q: Never Tobacco User Tobacco Use Within Last Twelve Months: No Second Hand Smoke Exposure: No Days Per Week of Alcohol Use: 0 Recreational Drug Use History: No - HOME MEDS Home Medications: Home Meds Albuterol [Ventolin HFA] 1 puff INH QID PRN #1 puff 02/05/20 [Rx] Pnv No.103/Folic/Om3s/Fish Oil [ Gummies] 1 tab PO DAILY 05/19/20 [History] - CURRENT (IN HOUSE) MEDS Current Meds: Current Medications Acetaminophen (Acetaminophen 325 Mg Tab) 650 mg PO Q4H PRN PRN Reason: Pain (Mild 1-3) and fever Calcium Carbonate/Glycine (Calcium Carbonate 500 Mg Tab.Chew) 1,000 mg PO Q2H PRN PRN Reason: Indigestion Diphenhydramine HCl (Diphenhydramine 50 Mg/Ml Sdv) 25 mg IVPUSH Q6H PRN PRN Reason: pruritis Ephedrine Sulfate (Ephedrine 50 Mg/Ml Sdv) 5 mg IVPUSH ASDIRECTED PRN PRN Reason: Hypotension Fentanyl (Fentanyl 100 Mcg/2 Ml Sdv) 100 mcg EPIDUR Q3H PRN PRN Reason: Pain Last Admin: 12/10/20 10:33 Dose: 100 mcg Documented by: Fentanyl/Bupivacaine HCl (Bupivacaine/Fentanyl/Ns 100 Ml Bag) 100 ml EPIDUR ASDIRECTED PRN PRN Reason: Pain Oxytocin/Lactated Ringer's (Pitocin In Lr 10 Units/1,000 Ml) 10 unit in 1,000 mls @ 100 mls/hr IV .CONTINUOUS NATALY Lactated Ringer's (Ringers, Lactated) 1,000 mls @ 100 mls/hr IV ASDIRECTED NATALY Last Admin: 12/10/20 04:22 Dose: 100 mls/hr Documented by: Oxytocin/Lactated Ringer's (Pitocin In Lr 10 Units/1,000 Ml) 10 unit in 1,000 mls @ 12 mls/hr IV TITRATE NATALY; Protocol Last Titration: 12/10/20 07:30 Dose: 12 munits/min, 72 mls/hr Documented by: Ondansetron HCl (Ondansetron 4 Mg/2 Ml Sdv) 4 mg IVPUSH Q4H PRN PRN Reason: Nausea/Vomiting Sodium Chloride (Sodium Chloride 0.9% 10 Ml Syringe) 10 ml FLUSH ASDIRECTED PRN PRN Reason: Keep Vein Open
[2020-12-10] MEDS: Bupivacaine/fentaNYL/NS 100 ML Bag EPIDUR PRN (18:24)
[2020-12-10] MEDS ORDERED: Sodium Chloride 0.9% 1,000 ML IRR PRN (19:01)
[2020-12-11] MEDS ORDERED: Bupivacaine 0.25% 10 ML SDV ONE
[2020-12-11] MEDS: Bupivacaine/fentaNYL/NS 100 ML Bag EPIDUR PRN (00:17)
[2020-12-11] MEDS ORDERED: Albuterol 6.7 GM Inhaler INH PRN (01:49)
--- NOTE | 2020-12-11 02:02 | PCM.SN.2 ---
- Free Text/Narrative Note: Delivery note: Stage I: Tomeka is a 20-year-old 1011 female admitted on 12/10/2020 at 39-4/7 weeks gestational age with an GREI of 12/13/2020 for induction of labor. She arrived at approximately 0430 hrs. for admission. Patient progressed slowly with Pitocin to approximately 3 cm at which time artificial rupture membranes was undertaken with resultant clear fluid in small amount. As she progressed so she desired epidural which was placed with good results. The patient began having moderate variable decelerations and intrauterine pressure catheter was placed and amnioinfusion was started. The heart tones were more fully assessed with the self electrode. She labor until approximately midnight and at shortly thereafter on 12/11/2020 she delivered a viable infant. Stage II: Tomeka delivered a viable, [place], female at 0131 hrs. on 12/11/2020 in a direct occiput anterior position. External restitution occurred. Cord was noted to be around neck loosely x1 and was reduced over the baby's head. The shoulders were then delivered anteriorly forcefully with gentle downward and then upward traction. The baby was placed on mom's abdomen and dried with warm blanket. Nose and mouth were bulb suction. Pitocin was increased to 500 cc an hour to facilitate increase in uterine tone and decrease likelihood of bleeding. Umbilical cord was allowed to pulsate x3 minutes and then was clamped x2 and cut by the baby's father. Umbilical cord had 3 vessels. Cord blood was obtained. No perineal or vaginal lacerations occurred and no suturing was required. The baby weighed 3180 grams (7 pounds, 0 ounces), had a length of 21 inches, and Apgars of 7 and 9. Her name is Binu Silva. Stage III: Placenta delivered at 0138 hrs. in a Hernadez presentation. It appeared intact and complete and was discarded per patient desire. Estimated blood loss was 100 cc. Patient plans to breast-feed. Condition: Good
[2020-12-11] MEDS ORDERED: Docusate Sodium 100 MG Cap PO PRN (02:54)
[2020-12-11] MEDS ORDERED: Witch Hazel Medicated Pads 40/Jar TOP PRN (02:54)
[2020-12-11] MEDS ORDERED: Acetaminophen 325 MG Tab PO PRN (02:54)
[2020-12-11] MEDS ORDERED: Benzocaine/Menthol 20%-0.5% Spray 56 GM Canister TOP PRN (02:54)
[2020-12-11] MEDS: Ibuprofen 600 MG Tab PO PRN ×2 (03:42→20:42)
--- NOTE | 2020-12-11 08:28 | PCM48HPAN ---
Post Anesthesia Note - EVALUATION WITHIN 48HRS OF ANESTHETIC Vital Signs in Normal Range: Yes Patient Participated in Evaluation: Yes Respiratory Function Stable: Yes Airway Patent: Yes Cardiovascular Function Stable: Yes Hydration Status Stable: Yes Pain Control Satisfactory: Yes Nausea and Vomiting Control Satisfactory: Yes Mental Status Recovered: Yes Vital Signs: Last Vital Signs Temp 97.9 F 12/10/20 03:29 Pulse 100 12/10/20 03:29 Resp 16 12/10/20 03:29 BP 121/79 12/10/20 03:29 Pulse Ox 98 12/10/20 03:29 - COMMENTS/OBSERVATIONS Free Text/Narrative:: Patient resting in bed holding baby when visiting with patient. Patient stated that she was "very happy" with her epidural and labor experience. Patient complained of mild back pain in epidural placement site but is controlled and has not gotten worse. Discussed signs and symptoms of infection, post-dural puncture headaches, post- depression, and if patient experiences increased back discomfort. Encouraged patient if any of those signs or symptoms develop to contact OB/Anesthesia so the patient can be treated accordingly if needed. Patient verbalized understanding. Patient did not voice any questions or concerns at this time. Bernice Aragon, NATURAL HISTORY COLLECTIONS CURATOR
[2020-12-11] MEDS ORDERED: Prenatal Multivitamin with Calcium/Folic Acid/Iron Tab PO SCH (09:00)
--- NOTE | 2020-12-12 10:58 | PCM.DCSUM1 ---
Discharge Summary - Hospital Course Free Text/Narrative:: Stage I: Tomeka is a 20-year-old 1011 female admitted on 12/10/2020 at 39-4/7 weeks gestational age with an GERI of 12/13/2020 for induction of labor. She arrived at approximately 0430 hrs. for admission. Patient progressed slowly with Pitocin to approximately 3 cm at which time artificial rupture membranes was undertaken with resultant clear fluid in small amount. As she progressed so she desired epidural which was placed with good results. The patient began having moderate variable decelerations and intrauterine pressure catheter was placed and amnioinfusion was started. The heart tones were more fully assessed with the self electrode. She labor until approximately midnight and at shortly thereafter on 12/11/2020 she delivered a viable infant. Stage II: Tomeka delivered a viable, [place], female infant at 0131 hrs. on 12/11/2020 in a direct occiput anterior position. External restitution occurred. Cord was noted to be around neck loosely x1 and was reduced over the baby's head. The shoulders were then delivered anteriorly forcefully with gentle downward and then upward traction. The baby was placed on mom's abdomen and dried with warm blanket. Nose and mouth were bulb suction. Pitocin was increased to 500 cc an hour to facilitate increase in uterine tone and decrease likelihood of bleeding. Umbilical cord was allowed to pulsate x3 minutes and then was clamped x2 and cut by the baby's father. Umbilical cord had 3 vessels. Cord blood was obtained. No perineal or vaginal lacerations occurred and no suturing was required. The baby weighed 3180 grams (7 pounds, 0 ounces), had a length of 21 inches, and Apgars of 7 and 9. Her name is Binu Silva. Stage III: Placenta delivered at 0138 hrs. in a Hernadez presentation. It appeared intact and complete and was discarded per patient desire. Estimated b lood loss was 100 cc. Patient plans to breast-feed. From patient is doing very well. She is nursing without problems, has been voiding without concerns. Lochia is minimal. Vital signs are stable and patient is afebrile. Patient is desiring discharge home. Condition: Good Diagnosis: Stroke: No - Discharge Data Discharge Date: 12/12/20 Discharge Disposition: Home, Self-Care 01 Condition: Good - Referral to Home Health Primary Care Physician: Parker Calvert MD - Discharge Diagnosis/Problem(s) (1) 39 weeks gestation of SNOMED Code(s): 96400666 ICD Code: Z3A.39 - 39 WEEKS GESTATION OF Status: Acute Current Visit: Yes (2) Asthma SNOMED Code(s): 184031896 ICD Code: J45.909 - UNSPECIFIED ASTHMA, UNCOMPLICATED Status: Acute Current Visit: Yes - Patient Instructions Diet: Usual Diet as Tolerated (Increase calories and calcium as recommended) Activity: As Tolerated (No intercourse or tampons until discharge results. Patient may take a bath.), No Strenuous Activities Driving: May Drive Today Showering/Bathing: May Shower Notify Provider of: Fever, Increased Pain, Swelling and Redness, Drainage Other/Special Instructions: pelvic rest for 6 weeks - Discharge Plan Home Medications: Home Meds Albuterol [Ventolin HFA] 1 puff INH QID PRN #1 puff 02/05/20 [Rx] Acetaminophen [Tylenol] 650 mg PO Q4H PRN tablet 12/12/20 [Rx] Benzocaine/Menthol [Dermoplast Pain Relief [place]] 1 can TOP ASDIRECTED PRN canister 12/12/20 [Rx] Docusate Sodium [Colace] 100 mg PO BID PRN cap 12/12/20 [Rx] Ibuprofen [Motrin] 600 mg PO Q4H PRN tablet 12/12/20 [Rx] Vit with Ca/FA/Iron [ Plus Iron] 1 each PO DAILY tablet 12/12/20 [Rx] witch Katie [Tucks] 1 pad TOP ASDIRECTED PRN pad 12/12/20 [Rx] Patient Handouts: Care After Vaginal Delivery Referrals: Parker Calvert MD [Primary Care Provider] - (Return [facility] weeks.) - Discharge Summary/Plan Comment DC Time >30 min.: No Total # of Minutes for Discharge Time: 10 Discharge Summary/Plan Comment: Discharge instructions: 1. Discharge home 2. Diet, activity and follow-up discussed with patient. Recommend nursing diet with increased calories and calcium. 3. Precautions given concern increased pain, bleeding, temperature, signs/symptoms of DVT/PE. 4. Medications per home medication was printed, discussed with and given to the patient. 5. Return to clinic-Dr. Calvert[facility] in 2 weeks. Diagnosis: Term -delivered Condition: Good - Patient Data Vitals - Most Recent: Last Vital Signs Temp 36.9 C 12/12/20 04:47 Pulse 98 12/11/20 20:20 Resp 14 12/12/20 04:47 BP 108/61 12/12/20 04:47 Pulse Ox 99 12/11/20 20:20 Weight - Most Recent: 86.954 kg Med Orders - Current: Current Medications Acetaminophen (Acetaminophen 325 Mg Tab) 650 mg PO Q4H PRN PRN Reason: mild pain or fever Benzocaine/Menthol (Benzocaine/Menthol 20%-0.5% [place] 56 Gm Canister) 0 gm TOP ASDIRECTED PRN PRN Reason: Perineal Comfort Measure Last Admin: 12/11/20 03:43 Dose: 1 can Documented by: Docusate Sodium (Docusate Sodium 100 Mg Cap) 100 mg PO BID PRN PRN Reason: Constipation Last Admin: 12/11/20 15:21 Dose: 100 mg Documented by: Ibuprofen (Ibuprofen 600 Mg Tab) 600 mg PO Q4H PRN PRN Reason: Mild pain or fever Last Admin: 12/11/20 20:42 Dose: 600 mg Documented by: Prenat Multivit/[place]/Iron/Folic Ac ( Multivitamin With Calcium/Folic Acid/Iron Tab) 1 each PO DAILY NATALY Last Admin: 12/11/20 11:55 Dose: 1 each Documented by: John May (John May Medicated Pads 40/Jar) 1 pad TOP ASDIRECTED PRN PRN Reason: Perineal Comfort Measure Last Admin: 12/11/20 03:43 Dose: 1 tub Documented by: Discontinued Medications Acetaminophen (Acetaminophen 325 Mg Tab) 650 mg PO Q4H PRN PRN Reason: Pain (Mild 1-3) and fever Albuterol (Albuterol 6.7 Gm Inhaler) 0 gm INH QID PRN PRN Reason: Shortness of Breath Bupivacaine HCl (Bupivacaine 0.25% 10 Ml Sdv) 10 ml .ROUTE .STK-MED ONE Stop: 12/11/20 00:01 Calcium Carbonate/Glycine (Calcium Carbonate 500 Mg Tab.Chew) 1,000 mg PO Q2H PRN PRN Reason: Indigestion Diphenhydramine HCl (Diphenhydramine 50 Mg/Ml Sdv) 25 mg IVPUSH Q6H PRN PRN Reason: pruritis Ephedrine Sulfate (Ephedrine 50 Mg/Ml Sdv) 5 mg IVPUSH ASDIRECTED PRN PRN Reason: Hypotension Fentanyl (Fentanyl 100 Mcg/2 Ml Sdv) 100 mcg EPIDUR Q3H PRN PRN Reason: Pain Last Admin: 12/10/20 10:33 Dose: 100 mcg Documented by: Fentanyl/Bupivacaine HCl (Bupivacaine/Fentanyl/Ns 100 Ml Bag) 100 ml EPIDUR ASDIRECTED PRN PRN Reason: Pain Last Admin: 12/11/20 00:17 Dose: 100 ml Documented by: Oxytocin/Lactated Ringer's (Pitocin In Lr 10 Units/1,000 Ml) 10 unit in 1,000 mls @ 100 mls/hr IV .CONTINUOUS NATALY Last Admin: 12/11/20 01:31 Dose: 100 mls/hr Documented by: Lactated Ringer's (Ringers, Lactated) 1,000 mls @ 100 mls/hr IV ASDIRECTED NATALY Last Admin: 12/10/20 21:42 Dose: 100 mls/hr Documented by: Oxytocin/Lactated Ringer's (Pitocin In Lr 10 Units/1,000 Ml) 10 unit in 1,000 mls @ 12 mls/hr IV TITRATE NATALY; Protocol Last Titration: 12/10/20 21:42 Dose: 2 munits/min, 12 mls/hr Documented by: Sodium Chloride (Normal Saline) 1,000 mls @ 100 mls/hr IRR ASDIRECTED PRN PRN Reason: Other Last Admin: 12/10/20 19:08 Dose: 100 mls/hr Documented by: Ondansetron HCl (Ondansetron 4 Mg/2 Ml Sdv) 4 mg IVPUSH Q4H PRN PRN Reason: Nausea/Vomiting Last Admin: 12/10/20 18:20 Dose: 4 mg Documented by: Sodium Chloride (Sodium Chloride 0.9% 10 Ml Syringe) 10 ml FLUSH ASDIRECTED PRN PRN Reason: Keep Vein Open
== END 2020-12-12 10:40 | disposition home or self-care (01) | DRG 807 ==
LOC: JD.OB 01:31 → OBSVTOIN 12-11 01:31 → JD.OB 12-11 01:32
PROVIDERS: ADMIT Obstetrics & Gynecology; ATTEND Obstetrics & Gynecology
PROC: 10E0XZZ Delivery of Products of Conception, External Approach (ICD-10-PCS; principal; 2020-12-11)
PROC: 10907ZC Drainage of Amniotic Fluid, Therapeutic from Products of Conception, Via Natural or Artificial Opening (ICD-10-PCS; 2020-12-11)
PROC: 10H07YZ Insertion of Other Device into Products of Conception, Via Natural or Artificial Opening (ICD-10-PCS; 2020-12-11)
PROC: 3E033VJ Introduction of Other Hormone into Peripheral Vein, Percutaneous Approach (ICD-10-PCS; 2020-12-11)
PROC: 3E0R3BZ Introduction of Anesthetic Agent into Spinal Canal, Percutaneous Approach (ICD-10-PCS; 2020-12-11)
PROC: 00HU33Z Insertion of Infusion Device into Spinal Canal, Percutaneous Approach (ICD-10-PCS; 2020-12-11)
DX: O99.52 Diseases of the respiratory system complicating childbirth (principal); Z37.0 Single live birth; J45.909 Unspecified asthma, uncomplicated; O99.02 Anemia complicating childbirth; O76 Abnormality in fetal heart rate and rhythm complicating labor and delivery; Z20.822 Contact with and (suspected) exposure to COVID-19; D64.9 Anemia, unspecified; Z88.5 Allergy status to narcotic agent; Z3A.39 39 weeks gestation of pregnancy
CPT/HCPCS: 01967; 36415; 51701; 51702; 59025; 59409; 85025; 86592; 86803; 86850; 86900; 86901; A9270-GY; J2405; J2590; J3010; J3490; J7030; J7120; U0002

== ENCOUNTER 2021-02-07 18:07 | Emergency (ER) | payer OTHER ==
[2021-02-07] MEDS ORDERED: Ketorolac 60 MG/2 ML SDV IM ONE ×2 (19:25→19:32)
[2021-02-07 19:38] LABS: CORONAVIRUS COVID-19 NAA NEGATIVE (NEGATIVE)
--- NOTE | 2021-02-07 19:42 | EDM.PDOC ---
ED HPI GENERAL MEDICAL PROBLEM - General Chief Complaint: ENT Problem Stated Complaint: SORE THROAT Time Seen by Provider: 02/07/21 18:32 Source of Information: Reports: Patient, RN Notes Reviewed History Limitations: Reports: No Limitations - History of Present Illness INITIAL COMMENTS - FREE TEXT/NARRATIVE: Patient is a 20-year-old female presenting to the emergency department with complaints of sore throat nasal congestion. Symptoms have been present since last week. She reports pain had improved, however she woke this morning and had worsened again. She reports nasal congestion with green drainage. In the course of the illness, she did lose her voice, however this is returning. Denies any fever, chills, nausea, vomiting, or diarrhea. Reports it is painful to swallow. She has been using Tylenol and ibuprofen for discomfort with her last dose of ibuprofen being around 1400 this afternoon. She does still have her tonsils. Reports it is painful to open her mouth. Denies any cough or shortness of breath. Throat Pain Score (Numeric/FACES): 10 - Related Data Allergies Allergy/AdvReac Type Severity Reaction Status Date / Time morphine Allergy Severe Anaphylactic Verified 02/07/21 18:39 Shock Home Meds: Home Meds Albuterol [Ventolin HFA] 1 puff INH QID PRN #1 puff 02/05/20 [Rx] Acetaminophen [Tylenol] 650 mg PO Q4H PRN tablet 12/12/20 [Rx] Benzocaine/Menthol [Dermoplast Pain Relief [place]] 1 can TOP ASDIRECTED PRN canister 12/12/20 [Rx] Docusate Sodium [Colace] 100 mg PO BID PRN cap 12/12/20 [Rx] Ibuprofen [Motrin] 600 mg PO Q4H PRN tablet 12/12/20 [Rx] Vit with Ca/FA/Iron [ Plus Iron] 1 each PO DAILY tablet 12/12/20 [Rx] witch Katie [Tucks] 1 pad TOP ASDIRECTED PRN pad 12/12/20 [Rx] Amoxicillin/Potassium Clav [Augmentin 875-125 Tablet] 1 each PO BID 7 Days #14 tablet 02/07/21 [Rx] Past Medical History Cardiovascular History: Reports: None Respiratory History: Reports: Asthma Gastrointestinal History: Reports: GERD (with preg) [employer]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 Musculoskeletal History: Reports: Other (See Below) Other Musculoskeletal History: r leg laceration/surgery Psychiatric History: Reports: Anxiety, Depression Hematologic History: Reports: Anemia Immunologic History: Reports: None Oncologic (Cancer) History: Reports: None - Infectious Disease History Infectious Disease History: Reports: MRSA - Past Surgical History Musculoskeletal Surgical History: Reports: Other (See Below) (leg laceration then drain tube-) Social & Family History - Family History Family Medical History: No Pertinent Family History - Caffeine Use Caffeine Use: Reports: Tea - Living Situation & Occupation Living situation: Reports: Single Occupation: Employed ED ROS ENT - Review of Systems Review Of Systems: See Below Constitutional: Reports: No Symptoms. Denies: Fever, Chills, Weakness HEENT: Reports: Sinus Problem (Nasal congestion with green discharge), Throat Pain Respiratory: Reports: No Symptoms Cardiovascular: Reports: No Symptoms Endocrine: Reports: No Symptoms GI/Abdominal: Reports: No Symptoms. Denies: Abdominal Pain, Nausea, Vomiting : Reports: No Symptoms Musculoskeletal: Reports: No Symptoms Skin: Reports: No Symptoms Neurological: Reports: No Symptoms Psychiatric: Reports: No Symptoms Hematologic/Lymphatic: Reports: No Symptoms Immunologic: Reports: No Symptoms ED EXAM, ENT - Physical Exam Exam: See Below Exam Limited By: No Limitations General Appearance: Alert, WD/WN, No Apparent Distress Mouth/Throat: Throat Pain, Tonsillar Erythema, Tonsillar Swelling (Right greater than left), Trismus. No: Tonsillar Exudates Neck: Normal Inspection, Supple, Non-Tender, Full Range of Motion Respiratory/Chest: No Respiratory Distress, Lungs Clear, Normal Breath Sounds, No Accessory Muscle Use, Chest Non-Tender Cardiovascular: Normal Peripheral Pulses, Regular Rate, Rhythm, No Edema, No Gallop, No JVD, No Murmur, No Rub Neurological: Alert, Oriented, CN II-XII Intact, Normal Cognition, Normal Gait, Normal Reflexes, No Motor/Sensory Deficits Psychiatric: Normal Affect, Normal Mood Skin: Warm, Dry, Intact, Normal Color, No Rash Course - Vital Signs Last Recorded V/S: Last Vital Signs Temp 98.9 F 02/07/21 18:31 Pulse 72 02/07/21 18:31 Resp 20 02/07/21 18:31 BP 133/88 02/07/21 18:31 Pulse Ox 100 02/07/21 18:31 - Orders/Labs/Meds Labs: Laboratory Tests 02/07/21 02/07/21 Range/Units 13:50 13:50 Influenza Type A RNA Negative (NEGATIVE) Influenza Type B RNA Negative (NEGATIVE) SARS-CoV-2 RNA (KATHARINE) Negative (NEGATIVE) Group A Strep (PCR) Detected H (NOT DETECT) Meds: Medications Discontinued Medications Generic Name Dose Route Start Last Admin Trade Name Baljit PRN Reason Stop Dose Admin Ketorolac Tromethamine 60 mg 02/07/21 19:25 02/07/21 20:14 Ketorolac 60 Mg/2 Ml Sdv IM 02/07/21 19:26 Not Given ONETIME ONE Ketorolac Tromethamine 60 mg 02/07/21 19:32 02/07/21 19:54 Ketorolac 60 Mg/2 Ml Sdv IM 02/07/21 19:33 60 mg ONETIME ONE Administration - Re-Assessments/Exams Free Text/Narrative Re-Assessment/Exam: Patient is a 20-year-old female presenting to the emergency department with complaints of sore throat and nasal congestion. She became ill approximately 1 week ago and reports that symptoms did improve, however today they have worsened again. Reports green discharge from her nose. On exam, patient has trismus which made it difficult to examine her tonsils, however what I could see the right tonsil appears to be larger than the left. She reports the right side of her throat hurts more than the left as well. She denies any difficulty swallowing or shortness of breath. Presentation is concerning for bacterial sinusitis, however I am also concerned that she could possibly have a right peritonsillar abscess. Covid and strep tests have been ordered. Discussed this with patient and recommend proceed with blood work and CT scan of the neck, however she is refusing this. I did discuss the risk associated with this and she states that she needs to go home because her baby is crying. Discussed with patient that an undiagnosed peritonsillar abscess could result in swelling with airway compromise, sepsis, or . She verbalized understanding of this. We will give her an injection of Toradol 60 mg IM and started on Augmentin for treatment of sinusitis. Discussed that if she should be worsening in any way, she should return to ER she verbalized understanding this. Patient will complete AMA form indicating that she refused exam as recommended. 02/07/21 20:41 A strep came back positive. Patient was started on Augmentin which should treat this, however there is still concern of possible underlying peritonsillar abscess. Departure - Departure Time of Disposition: 19:42 Disposition: Against Medical Advice 07 Condition: Good Clinical Impression: Throat pain Sinusitis Qualifiers: Sinusitis location: maxillary Chronicity: acute Recurrence: non-recurrent Qualified Code(s): J01.00 - Acute maxillary sinusitis, unspecified - Discharge Information Prescriptions: Amoxicillin/Potassium Clav [Augmentin 875-125 Tablet] 1 each PO BID 7 Days #14 tablet Instructions: Sinusitis, Adult, [id number] Referrals: Ruma Frye MD [Primary Care Provider] - Forms: ED Department Discharge Additional Instructions: There is concern that you may have a peritonsillar abscess which can be a life- threatening emergency. You refused work-up for this which includes blood work and a CT scan of the neck. Risk associated with this include swelling which can lead to airway compromise, sepsis, and . You have been started on Augmentin for treatment of bacterial sinusitis. Take th is as prescribed. Use [id number] Tylenol ibuprofen is a for discomfort. If symptoms should worsen in any way or fail to improve over the next few days, return to ER. Sepsis Event Note (ED) - Evaluation Sepsis Screening Result: No Definite Risk - Focused Exam Vital Signs: Vital Signs Temp Pulse Resp BP Pulse Ox 02/07/21 18:31 98.9 F 72 20 133/88 100
== END 2021-02-07 20:06 | disposition left against medical advice (07) ==
LOC: JD.ED 18:07
DX: J01.00 Acute maxillary sinusitis, unspecified (principal); R07.0 Pain in throat; J45.909 Unspecified asthma, uncomplicated; Z88.5 Allergy status to narcotic agent; Z20.822 Contact with and (suspected) exposure to COVID-19
CPT/HCPCS: 0240U; 87651; 96372; 99283; J1885

== ENCOUNTER 2022-05-10 04:59 | Inpatient (IN) | payer SELFPAY ==
[2022-05-10] MEDS ORDERED: Nalbuphine 10 MG/0.5 ML Syringe IVPUSH PRN (05:10)
[2022-05-10] MEDS ORDERED: Lidocaine 1% 50 ML MDV INJECT ONE (05:10)
[2022-05-10] MEDS ORDERED: Sodium Chloride 0.9% 10 ML Syringe FLUSH PRN (05:10)
[2022-05-10] MEDS ORDERED: Ampicillin 2 GM in Sodium Chloride 0.9% 100 ML IV ONE (05:10)
[2022-05-10] MEDS ORDERED: Oxytocin/Lactated Ringers 10 UNIT/1,000 ML BAG IV SCH (05:15)
[2022-05-10] MEDS ORDERED: Ampicillin 2 GM Vial ONE (05:15)
[2022-05-10] MEDS ORDERED: Sodium Chloride 0.9% 50 ML ONE (05:16)
[2022-05-10] MEDS: Lactated Ringers 1,000 ML IV SCH ×4 (05:23→09:40)
[2022-05-10] MEDS ORDERED: fentaNYL 100 MCG/2 ML SDV EPIDUR PRN (05:54)
[2022-05-10] MEDS ORDERED: diphenhydrAMINE 50 MG/ML SDV IVPUSH PRN (05:54)
[2022-05-10] MEDS ORDERED: Bupivacaine/fentaNYL/NS 100 ML Bag EPIDUR PRN (05:54)
[2022-05-10] MEDS ORDERED: ePHEDrine 50 MG/ML SDV IVPUSH PRN (05:54)
[2022-05-10] MEDS ORDERED: Sodium Chloride 0.9% 10 ML Syringe FLUSH SCH (09:00)
[2022-05-10] MEDS ORDERED: Ampicillin 1 GM in Sodium Chloride 0.9% 100 ML IV SCH (09:30)
[2022-05-10] MEDS ORDERED: Bupivacaine 0.25% 10 ML SDV ONE (12:00)
[2022-05-10] MEDS ORDERED: Ondansetron 4 MG/2 ML SDV IVPUSH PRN (12:06)
[2022-05-10] MEDS ORDERED: Witch Hazel Medicated Pads 40/Jar TOP PRN (12:10)
[2022-05-10] MEDS ORDERED: Benzocaine/Menthol 20%-0.5% Spray 78 GM Cannister TOP PRN (12:10)
[2022-05-10] MEDS: Ibuprofen 600 MG Tab PO PRN (21:43)
[2022-05-10] MEDS: Acetaminophen 325 MG Tab PO PRN (21:43)
[2022-05-11] MEDS: Acetaminophen 325 MG Tab PO PRN (04:07)
[2022-05-11] MEDS: Ibuprofen 600 MG Tab PO PRN (09:00)
== END 2022-05-11 20:15 | disposition home or self-care (01) | DRG 807 ==
LOC: JD.OBCHECK 04:59 → JD.OB 05:02 → JD.OBCHECK 07:34 → JD.OB 07:35 → OBSVTOIN 10:22 → JD.OB 10:23
PROVIDERS: ADMIT Obstetrics & Gynecology; ATTEND Obstetrics & Gynecology
PROC: 10E0XZZ Delivery of Products of Conception, External Approach (ICD-10-PCS; principal; 2022-05-10)
PROC: 3E0R3BZ Introduction of Anesthetic Agent into Spinal Canal, Percutaneous Approach (ICD-10-PCS; 2022-05-10)
PROC: 00HU33Z Insertion of Infusion Device into Spinal Canal, Percutaneous Approach (ICD-10-PCS; 2022-05-10)
PROC: 10907ZC Drainage of Amniotic Fluid, Therapeutic from Products of Conception, Via Natural or Artificial Opening (ICD-10-PCS; 2022-05-10)
DX: O99.824 Streptococcus B carrier state complicating childbirth (principal); Z37.0 Single live birth; O66.0 Obstructed labor due to shoulder dystocia; Z3A.39 39 weeks gestation of pregnancy; O99.52 Diseases of the respiratory system complicating childbirth; O99.62 Diseases of the digestive system complicating childbirth; J45.909 Unspecified asthma, uncomplicated; K21.9 Gastro-esophageal reflux disease without esophagitis; O99.02 Anemia complicating childbirth; D64.9 Anemia, unspecified; Z87.891 Personal history of nicotine dependence; Z88.5 Allergy status to narcotic agent; Z79.899 Other long term (current) drug therapy
CPT/HCPCS: 36415; 51702; 59025; 59409; 85025; 86592; A9270-GY; J0290; J2405; J2590; J3010; J3490; J7120

== ENCOUNTER 2024-05-18 00:42 | Emergency (ER) | payer SELFPAY | END 2024-05-18 01:30 | disposition home or self-care (01) | LOC: JD.ED 00:42 | DX: S50.01XA Contusion of right elbow, initial encounter (principal); S60.221A Contusion of right hand, initial encounter; Z79.899 Other long term (current) drug therapy; Z88.0 Allergy status to penicillin; W22.09XA Striking against other stationary object, initial encounter | CPT/HCPCS: 73080-26-RT; 73080-RT; 73130-26-RT; 73130-RT; 99283 ==